=== PATIENT | male | born 1975 | race African-American/Black ===

== ENCOUNTER 2016-04-03 13:11 | Emergency (ER) | payer OTHER ==
--- NOTE | 2016-04-03 14:07 | ED ---
Complex/Multi-Sys Presentation - HPI Summary HPI Summary: Pt here w/ fall last night - was leaving work and slipped on ice on steps - hit Lt side of head on railing. Has multiple cuts and bruises on the Left side of his head and face - cleaned wounds last night, applied triple anbx ointment and went to bed as he had to get up to go to work again this morning. He's here now to have wounds assessed for need of suture. Denies LOC, visual change, nausea/ vomiting, neck pain, dental pain, UE injury/pain, rib/chest pain, ab pain, LE/ back/hip pain. Moving well - just a little sore. Tetanus is UTD. - History Of Current Complaint Hx Obtained From: Patient <Ana Velazquez - Last Filed: 04/06/16 20:45> <Becky Townsend - Last Filed: 04/07/16 08:46> - History Of Current Complaint Chief Complaint: EDFacialInjury Time Seen by Provider: 04/03/16 13:32 - Allergies/Home Medications Allergies/Adverse Reactions: Allergies Allergy/AdvReac Type Severity Reaction Status Date / Time Penicillins [PCN] Allergy Hives Verified 12/29/14 10:31 PMH/Surg Hx/FS Hx/Imm Hx Previously Healthy: Yes Endocrine/Hematology History: Denies: Hx Anticoagulant Therapy, Hx Blood Disorders, Hx Unexplained Bleeding Musculoskeletal History: Denies: Hx Arthritis Infectious Disease History: Yes Infectious Disease History: Denies: Hx of Known/Suspected MRSA, Traveled Outside the [place] in Last 30 Days - Family History Known Family History: Positive: None - Social History Occupation: Employed Full-time Alcohol Use: Occasionally Substance Use Type: Reports: None Smoking Status (MU): Former Smoker <Ana Velazquez - Last Filed: 04/06/16 20:45> Review of Systems Constitutional: Negative Eyes: Negative ENT: Negative Cardiovascular: Negative Respiratory: Negative Gastrointestinal: Negative Positive: no symptoms reported Musculoskeletal: Negative Skin: Other - see HPI Neurological: Negative Psychological: Normal All Other Systems Reviewed And Are Negative: Yes <Ana Velazquez - Last Filed: 04/06/16 20:45> Physical Exam Triage Information Reviewed: Yes Vital Signs On Initial Exam: Initial Vitals Temp Pulse Resp BP Pulse Ox 98.3 F 104 20 158/104 98 04/03/16 13:14 04/03/16 13:14 04/03/16 13:14 04/03/16 13:14 04/03/16 13:14 Vital Signs Reviewed: Yes Appearance: Positive: Well-Appearing, No Pain Distress, Well-Nourished Skin: Positive: Warm - Lt forehead - abrasion w/ superficial vertical laceration through this; c-shaped lac lateral to previously mentiuoned wound ( superficial); small fissured lac along lateral pinna - scabbed but oozed blood w / cleaning; superficial stellate lac within ear - no active bleeding; ecchymosis superior to mastoid region and ecchymosis over Lt posterior scalp over parietal region - mild TTP ("sore") - no laxity Head/Face: Positive: Normal Head/Face Inspection - no gross deformity, no laxity w/ palpation; no racoon sign - pt has superficial scant focal macular ecchymosis over Lt mastoid w/ mild TTP - no bogginess, no laxity, no dependent discoloration Eyes: Positive: Normal, EOMI, SCOTTIE - no photosensitivity, Conjunctiva Clear ENT: Positive: Normal ENT inspection, Hearing grossly normal, Pharynx normal, TMs normal - no hemotympanum. Negative: Nasal drainage - no signs of epistaxis Dental: Negative: Dental Fracture @ Neck: Positive: Supple, Nontender Respiratory/Lung Sounds: Positive: Clear to Auscultation, Breath Sounds Present. Negative: Subcutaneous Emphysema, Stridor, Tracheal Deviation Cardiovascular: Positive: Normal, RRR, Pulses are Symmetrical in both Upper and Lower Extremities, S1, S2 Abdomen Description: Positive: Nontender, Soft Musculoskeletal: Positive: Normal, Strength/ROM Intact Neurological: Positive: Normal, Sensory/Motor Intact, Alert, Oriented to Person Place, Time, CN Intact II-III, Normal Gait, Facial Symmetry, Speech Normal. Negative: Disoriented, Facial Droop, Slurred Speech Psychiatric: Positive: Normal <Ana Velazquez - Last Filed: 04/06/16 20:45> Vital Signs On Initial Exam: Initial Vitals Temp Pulse Resp BP Pulse Ox 98.3 F 104 20 158/104 98 04/03/16 13:14 04/03/16 13:14 04/03/16 13:14 04/03/16 13:14 04/03/16 13:14 <Becky Townsend - Last Filed: 04/07/16 08:46> Procedures - Laceration/Wound Repair 1 Location: face - c-shaped laceration over Lt forehead Description: Irregular - c-shaped Length, Depth and Shape: 0.5cm x 1mm Betadine Prep?: No - antiseptic spray and alcohol Laceration/Wound Explored: clean Closure: Skin Adhesive, SteriStrips <Ana Velazquez - Last Filed: 04/06/16 20:45> Diagnostics - Vital Signs Vital Signs Temp Pulse Resp BP Pulse Ox 04/03/16 13:14 98.3 F 104 20 158/104 98 <Ana Velazquez - Last Filed: 04/06/16 20:45> - Vital Signs Vital Signs Temp Pulse Resp BP Pulse Ox 04/03/16 13:14 98.3 F 104 20 158/104 98 <Becky Townsend - Last Filed: 04/07/16 08:46> Complex Multi-Symp Course/Dx Course Of Treatment: Pt reports fall w/ injury to Lt side of head - denies LOC and no neurological deficits. PE is neg for neurological deficits as well - skin injuries are addressed as mentioned in note. Discussed head CT - opted to avoid at this time but reviewed danger s/sx of when to return to ED - pt voices understanding and agrees w/ plan. <Ana Velazquez - Last Filed: 04/06/16 20:45> <Becky Townsend - Last Filed: 04/07/16 08:46> - Diagnoses Provider Diagnoses: Head injury, Contusion of head, Abrasion of face, Laceration of face, multiple sites Discharge <Ana Velazquez - Last Filed: 04/06/16 20:45> <Becky Townsend - Last Filed: 04/07/16 08:46> - Discharge Plan Condition: Stable Disposition: HOME Patient Education Materials: Laceration (ED), Head Injury (ED), Abrasion (ED), Skin Adhesive Care (ED), Scalp Contusion in Adults (ED), Steristrips (ED), Facial Contusion (ED) Forms: *Work Release Referrals: [facility] [Outside] Additional Instructions: Keep steristripped wound clean and dry until strip fall off All other areas, clean daily: gently wash with antibacterial soap and water - rinse well and pat dry with clean towel then apply triple antibiotic ointment Rest Ice Ibuprofen Follow-up with PCP this week - call Tuesday to schedule an appointment *If you develop MURRY, eye pain, change in vision, light sensitivity, vomiting, neck pain, redness, swelling, purulent drainage, fever, chills, return to ED Attestations User Type: Provider - I was available for consult. This patient was seen by the advanced practice provider. The patient was not presented to, seen by, or examined by me. <Becky Townsend - Last Filed: 04/07/16 08:46>
== END 2016-04-03 14:13 | disposition home or self-care (01) ==
LOC: ED 13:11
DX: S09.90XA Unspecified injury of head, initial encounter (principal); W19.XXXA Unspecified fall, initial encounter; Y93.9 Activity, unspecified; Y92.9 Unspecified place or not applicable; Z87.891 Personal history of nicotine dependence
CPT/HCPCS: 99281

== ENCOUNTER 2016-08-04 22:55 | Emergency (ER) | payer BC, OTHER ==
[2016-08-05] MEDS ORDERED: Clindamycin CAP* 150 MG PO ONE ×2 (00:03→00:17)
--- NOTE | 2016-08-05 00:09 | ED ---
Skin Complaint - HPI Summary HPI Summary: Patient presents with redness on his left lower leg that he just notice today. He has a history of cellulitis a year or two ago in this area after trauma from metal cutting his skin. He does not relate his symptoms today to any known trauma. He denies pain, or fever. The redness is localized on the distal mulligan with a mild expansion proximally. - History of Current Complaint Chief Complaint: EDRashSkinAbscess Time Seen by Provider: 08/04/16 23:52 Stated Complaint: RT LEG PAIN Hx Obtained From: Patient Onset/Duration: Started Days Ago, Atraumatic, Still Present Timing: Constant Onset Severity: Mild Current Severity: Mild Pain Intensity: 3 Skin Location: Leg Character: Swelling - mild, Redness Aggravating Symptom(s): Nothing Alleviating Symptom(s): Nothing Associated Signs & Symptoms: Rash - erythema to right medial distal mulligan - Allergy/Home Medications Allergies/Adverse Reactions: Allergies Allergy/AdvReac Type Severity Reaction Status Date / Time Penicillins [PCN] Allergy Hives Verified 12/29/14 10:31 PMH/Surg Hx/FS Hx/Imm Hx Previously Healthy: Yes Endocrine/Hematology History: Denies: Hx Anticoagulant Therapy, Hx Blood Disorders, Hx Unexplained Bleeding Musculoskeletal History: Denies: Hx Arthritis Infectious Disease History: Denies: Hx of Known/Suspected MRSA, Traveled Outside the [place] in Last 30 Days - Family History Known Family History: Positive: None - Social History Occupation: Employed Full-time Lives: With Family Alcohol Use: Occasionally Substance Use Type: Reports: None Smoking Status (MU): Former Smoker Review of Systems Negative: Fever, Chills Positive: Other - erythema to right medial distal mulligan Negative: Paresthesia, Numbness All Other Systems Reviewed And Are Negative: Yes Physical Exam Triage Information Reviewed: Yes Vital Signs On Initial Exam: Initial Vitals Temp Pulse Resp BP Pulse Ox 97.6 F 95 18 143/89 99 08/04/16 22:56 08/04/16 22:56 08/04/16 22:56 08/04/16 22:56 08/04/16 22:56 Vital Signs Reviewed: Yes Appearance: Positive: Well-Appearing, No Pain Distress, Well-Nourished Skin: Positive: Warm, Skin Color Reflects Adequate Perfusion, Dry, Soft, Erythema @ - erythema to right medial distal mulligan Head/Face: Positive: Normal Head/Face Inspection Eyes: Positive: EOMI, SCOTTIE, Conjunctiva Clear ENT: Positive: Hearing grossly normal Respiratory/Lung Sounds: Positive: Breath Sounds Present Cardiovascular: Positive: RRR Musculoskeletal: Positive: Strength/ROM Intact, Edema Right - mild. Negative: Pain @, Malick Sign Left, Malick Sign Right Neurological: Positive: Sensory/Motor Intact, Alert, Oriented to Person Place, Time, NV Bundle Intact Distally, Normal Gait Psychiatric: Positive: Affect/Mood Appropriate AVPU Assessment: Alert Diagnostics - Vital Signs Vital Signs Temp Pulse Resp BP Pulse Ox 08/04/16 22:56 97.6 F 95 18 143/89 99 - Laboratory Lab Statement: Any lab studies that have been ordered have been reviewed, and results considered in the medical decision making process. Course/Dx - Differential Diagnoses - Skin Complaint Differential Diagnoses: Abscess, Allergic Reaction, Cellulitis, Contact Dermatitis, Local Allergic Reaction, MRSA, Urticaria - Diagnoses Provider Diagnoses: Cellulitis of right lower leg Discharge - Discharge Plan Condition: Stable Disposition: HOME Prescriptions: Clindamycin Cap(NF) [Cleocin 300 mg Cap(NF)] 300 mg PO Q6H #38 cap Patient Education Materials: Cellulitis (ED) Referrals: Craol Mar MD [Primary Care Provider] - Additional Instructions: Please take the antibiotics prescribed until they are completely gone. Follow- up with your primary care provider, [facility] or this emergency department in 2 days for re-evaluation if symptoms persist. Return to the emergency department sooner if symptoms worsen.
[2016-08-05 00:39] VITALS: BP 133/92
== END 2016-08-05 00:30 | disposition home or self-care (01) ==
LOC: ED 22:55
DX: L03.115 Cellulitis of right lower limb (principal); R21 Rash and other nonspecific skin eruption; Z87.891 Personal history of nicotine dependence
CPT/HCPCS: 99282; A9270-GY

== ENCOUNTER → 2016-10-23 01:55 | Emergency (ER) | payer BC ==
[2016-10-23 02:00] VITALS: BP 162/110
== END | disposition home or self-care (01) ==
LOC: ED 01:55
DX: M79.604 Pain in right leg (principal); Z53.21 Procedure and treatment not carried out due to patient leaving prior to being seen by health care provider
CPT/HCPCS: 99281

== ENCOUNTER 2018-07-14 07:08 | Emergency (ER) | payer SELFPAY ==
[2018-07-14 07:24] VITALS: BP 160/105
--- NOTE | 2018-07-14 07:31 | UC ---
Skin Complaint HPI - HPI Summary HPI Summary: Patient is a 42-year-old male who presents to the urgent care with chief complaint of having a flare of the cellulitis. Patient reports that he has been having intermittent episodes of this cellulitis in the right leg. He reports swelling, redness and tenderness in the anterior aspect of the lower extremity which is usually his cellulitis. The patient denies any calf pain or claudication. He also reports that he has history of having a pressure but he is not taking any medications because he hasnt seen a primary care physician. - History of Current Complaint Chief Complaint: UCSkin Time Seen by Provider: 07/14/18 07:12 Stated Complaint: CELLULITISLOWER RIGHT LEG Pain Intensity: 0 - Allergy/Home Medications Allergies/Adverse Reactions: Allergies Allergy/AdvReac Type Severity Reaction Status Date / Time Penicillins Allergy Hives Verified 07/14/18 07:23 Home Medications: Home Medications Ibuprofen 800 mg PO ONCE PRN 07/14/18 [History Confirmed 07/14/18] PMH/Surg Hx/FS Hx/Imm Hx Previously Healthy: Yes Cardiovascular History: Hypertension Other History Of: Negative For: Anticoagulant Therapy - Surgical History Surgical History: None - Family History Known Family History: Positive: None, Non-Contributory - Social History Alcohol Use: Occasionally Substance Use Type: Marijuana Smoking Status (MU): Light Every Day Tobacco Smoker Amount Used/How Often: 10 cig/day Household Exposure Type: Cigarettes Review of Systems All Other Systems Reviewed And Are Negative: Yes Is Patient Immunocompromised?: No - Comments Additional Review of Systems Comments: Review of Symptoms Constitutional: No Weight Change, No Fever, No Chills, No Night Sweats, No Fatigue, No Malaise ENT/Mouth: No Hearing Changes, No Ear Pain, No Nasal Congestion, No Sinus Pain , No Hoarseness, No sore throat, No Rhinorrhea, No Swallowing Difficulty Eyes: No Eye Pain, No Swelling, No Redness, No Foreign Body, No Discharge, No Vision Changes Cardiovascular: No Chest Pain, No SOB, No PND, No Dyspnea on Exertion, No Orthopnea, No Claudication, No Edema, No Palpitations Respiratory: No Cough, No Sputum, No Wheezing, No Smoke Exposure, No Dyspnea Gastrointestinal: No Nausea, No Vomiting, No Diarrhea, No Constipation, No Pain , No Heartburn, No Anorexia, No Dysphagia, No Hematochezia, No Melena, No Flatulence, No Jaundice Genitourinary: No Dysmenorrhea, No Dyspareunia, No Dysuria, No Urinary Frequency, No Hematuria, No Urinary Incontinence, No Urgency, No Flank Pain, No Urinary Flow Changes, No Hesitancy Musculoskeletal: No Arthralgias, No Myalgias, No Joint Swelling, No Joint Stiffness, No Back Pain, No Neck Pain, No Injury History Skin: Positive erythema and increase in temperature and swelling of the right LE. Physical Exam - Summary Physical Exam Summary: VITAL SIGNS: Reviewed. GENERAL: Patient is a well developed and nourished male who is lying comfortable in the stretcher. Patient is not in any acute respiratory distress. HEAD AND FACE: No signs of trauma. No ecchymosis, hematomas or skull depressions. No sinus tenderness. EYES: PERRLA, EOMI x 2, No injected conjunctiva, no nystagmus. EARS: Hearing grossly intact. Ear canals and tympanic membranes are within normal limits. MOUTH: Oropharynx within normal limits. NECK: Supple, trachea is midline, no adenopathy, no JVD, no carotid bruit, no c- spine tenderness, neck with full ROM. CHEST: Symmetric, no tenderness at palpation LUNGS: Clear to auscultation bilaterally. No wheezing or crackles. CVS: Regular rate and rhythm, S1 and S2 present, no murmurs or gallops appreciated. ABDOMEN: Soft, non-tender. No signs of distention. No rebound no guarding, and no masses palpated. Bowel sounds are normal. EXTREMITIES: FROM in all major joints, no edema, no cyanosis or clubbing. NEURO: Alert and oriented x 3. No acute neurological deficits. Speech is normal and follows commands. SKIN: Erythema, swelling tenderness in the right LE. Triage Information Reviewed: Yes Appearance: Well-Appearing, No Pain Distress, Well-Nourished Vital Signs: Initial Vital Signs Temp 97.8 F 07/14/18 07:18 Pulse 81 07/14/18 07:18 Resp 18 07/14/18 07:18 BP 160/105 07/14/18 07:18 Pulse Ox 99 07/14/18 07:18 Course/Dx - Course Course Of Treatment: In the urgent care course we noticed that the patient has a right lower extremity cellulitis for which the patient was given a prescription for Bactrim. Patient also was noticed to have increased blood pressure however he is not taking any of his medications. Therefore the patient was given lisinopril/hydrochlorothiazide was given patient and the follow-up with primary care physician. The patient understands that he needs to see the primary care physician in the next 2-3 days to make sure the symptoms getting better and also the blood pressure is controlled. The patient understands and agrees. - Diagnoses Provider Diagnosis: Cellulitis, Hypertension Discharge - Sign-Out/Discharge Documenting (check all that apply): Patient Departure All imaging exams completed and their final reports reviewed: No Studies - Discharge Plan Condition: Stable Disposition: HOME Prescriptions: Lisinopril/HCTZ 11/25.5(NF) [Zestoretic 11/25.5(NF)] 1 tab PO DAILY #30 tab Sulfamethox/Trimethoprim DS* [Bactrim DS 800/160 TAB*] 1 tab PO BID #20 tab Patient Education Materials: Cellulitis (ED), Hypertension (ED) Referrals: Carol Mar MD [Primary Care Provider] - Additional Instructions: Take medications as instructed Increase your fluid intake F/U with PCP in the next 2-3 days Return to the UC if symptoms worsen ELEVATED BLOOD PRESSURE: Patients blood pressure was noted to be elevated. The patient was instructed to follow up with primary care provider for reassessment of increased blood pressure. - Billing Disposition and Condition Condition: STABLE Disposition: Home
== END 2018-07-14 07:49 | disposition home or self-care (01) ==
LOC: UCEAST 07:08
DX: L03.115 Cellulitis of right lower limb (principal); I10 Essential (primary) hypertension; F17.210 Nicotine dependence, cigarettes, uncomplicated; Z88.0 Allergy status to penicillin
CPT/HCPCS: 99212; G0463